=== PATIENT | female | born 1980 | race Caucasian/White ===

== ENCOUNTER → 2016-10-03 | Outpatient (CLI) | payer OTHER ==
[~2016-10-03] MED LIST: CYCL-36 PO; LORTA5 PO; MOTR200T PO; OXYC1TAB63 PO; PREN0.01 PO
== END ==
LOC: CLAB 11:01
PROVIDERS: ATTEND Obstetrics & Gynecology
DX: O36.0191 Maternal care for anti-D [Rh] antibodies, unspecified trimester, fetus 1 (principal); Z14.8 Genetic carrier of other disease
CPT/HCPCS: 36415; 86850; 86900; 86901; 90384; 96372; J2790

== ENCOUNTER 2016-12-21 18:10 | Inpatient (IN) | payer OTHER ==
[~2016-12-21 18:10] MED LIST changes: -OXYC1TAB63 PO
[2016-12-21 19:00] VITALS: RESP 20; TEMP 99.2
[2016-12-21] MEDS ORDERED: LACTATED RINGER'S 1000 ML IV SCH (20:15)
[2016-12-21] MEDS ORDERED: DINOPROSTONE 10 MG INSERT - REMOVE AT 0600 VAGINAL ONE (20:15)
[2016-12-21] MEDS ORDERED: SODIUM CHLORIDE 0.9% FLUSH 10 ML FLUSH IV FLUSH PRN ×2 (20:15)
[2016-12-21] MEDS ORDERED: ONDANSETRON HCL 4 MG/2 ML VIAL IV PRN (20:15)
[2016-12-21] MEDS ORDERED: MINERAL OIL 10 ML VIAL TOPICAL PRN (20:15)
[2016-12-21] MEDS ORDERED: CITRIC ACID-SODIUM CITRATE LIQ 30 ML UDC PO SCH (20:15)
[2016-12-21] MEDS ORDERED: LIDOCAINE HCL 1% 50 ML VIAL INFIL PRN (20:15)
[2016-12-21] MEDS ORDERED: NS 500 ML BOLUS IV PRN (20:15)
[2016-12-21] MEDS ORDERED: OXYTOCIN 30 UNITS/NS 500ML PREMIX IV SCH (20:15)
[2016-12-21] MEDS ORDERED: NS 1000 ML IV PRN (20:15)
[2016-12-21] MEDS ORDERED: OXYTOCIN 30 UNITS 500ML PREMIX IV ONE (20:15)
[2016-12-21] MEDS ORDERED: LACTATED RINGER'S 1000 ML BOLUS IV PRN (20:15)
[2016-12-21] MEDS ORDERED: LIDOCAINE HCL 1% 50 ML VIAL I-DERMAL PRN (20:15)
[2016-12-21 20:24] LABS: BACTERIA, URINE RARE /hpf; BLOOD, URINE NEG (NEG); COMMENT (UR) CULT NOT INDICATED; CULTURE IF INDICATED CULT NOT INDICATED; GLUCOSE,URINE NEG (NEG); KETONE, URINE NEG (NEG); MUCUS URINE FEW /lpf (OCC); NITRITE,URINE NEG (NEG); SQUAMOUS EPITHELIAL CELL URINE 7 /hpf (0-5); URINE COLOR LIGHT-YELLOW (YELLW/STRAW)
[2016-12-21] MEDS ORDERED: CLINDAMYCIN INJ 900 MG in SODIUM CHLORIDE 0.9% INJ 100 ML IV ONE (21:00)
[2016-12-21] MEDS ORDERED: LACTATED RINGER'S 1000 ML INJ 1,000 ML IV SCH (21:00)
[2016-12-21 21:57] LABS: AUTOMATED NEUTROPHIL # 6.8 TH/MM3 (1.8-7.7); BASOPHIL # 0.1 TH/MM3 (0-0.2); BASOPHIL % 0.6 % (0.0-2.0); EOSINOPHIL # 0.1 TH/MM3 (0-0.4); EOSINOPHIL % 0.9 % (0.0-4.0); HEMATOCRIT 35.6 % (35.0-46.0); HEMO FLAGS DIFF FINAL; LYMPH % 23.5 % (9.0-44.0); LYMPHOCYTE # 2.4 TH/MM3 (1.0-4.8); MEAN CELL VOLUME 96.1 FL (80.0-100.0); MEAN CORPUSCULAR HEMOGLOBIN 33.4 PG (27.0-34.0); MEAN CORPUSCULAR HGB CONC 34.7 % (32.0-36.0); PLATELET COUNT 173 TH/MM3 (150-450); RED CELL DISTRIBUTION WIDTH 13.1 % (11.6-17.2); WHITE BLOOD COUNT 10.2 TH/MM3 (4.0-11.0)
[2016-12-22] VITALS (50 sets, daily range): BP systolic 96–139; BP diastolic 44–90; PULSE 61–119; RESP 18; TEMP 97.6–98.4; O2SAT 99–100
--- NOTE | 2016-12-22 05:17 | MH ---
cc: JORGE DIAZ M.D. DATE OF ADMISSION: 12/21/2016 ADMISSION DIAGNOSES 1. Term 2. Advanced terminal age, 36. HISTORY OF PRESENT ILLNESS The patient is a 36-year-old white female, para 0-0-3-0, LMP of 03/17/2016, EDC of 12/22/2016. Her course was benign. 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 All three required D&C. She had a uterine septum resection in August of 2015 and has done well with this . 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 MEDICATIONS Vitamins. ALLERGIES None. TRANSFUSIONS None. SOCIAL HISTORY She is . She is a CPA. 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 PHYSICAL EXAMINATION GENERAL: A well-nourished well-developed white female. VITAL SIGNS: Stable. HEENT EXAM: Normal. CHEST: Clear. HEART: Regular rate. BREASTS: Symmetrical. ABDOMEN: Gravid. EFW is 3500 grams. PELVIC EXAM: The cervix is closed. EXTREMITIES: Normal. ASSESSMENT As above. PLAN She is now admitted for Cervidil and Pitocin induction. Should she have failure to progress or distress, would need delivery. The patient agrees to proceed. MD JOSE LUIS Toro/LEWIS /5:21 PM /5:02 AM JOAQUIM
[2016-12-22] MEDS ORDERED: OXYTOCIN 30 UNITS/NS 500ML PREMIX IV SCH (06:30)
[2016-12-22] MEDS: CLINDAMYCIN 600 MG/NS 100 ML IV SCH ×6 (07:54→17:14)
[2016-12-22] MEDS ORDERED: LACTATED RINGER'S 1000 ML INJ 1,000 ML IV SCH (13:04)
[2016-12-22] MEDS ORDERED: OXYTOCIN 10 UNIT/ML AMP ONE (16:06)
[2016-12-22] MEDS ORDERED: ACETAMINOPHEN 1000 MG/100 ML VIAL IV ONE (17:20)
[2016-12-22] MEDS ORDERED: OXYTOCIN 30 UNITS-500ML PREMIX 500 ML IV PRN (18:15)
[2016-12-22] MEDS ORDERED: oxyCODONE/ACETAMINOPHEN 5 MG/325 MG TAB PO PRN ×2 (18:30)
[2016-12-22] MEDS ORDERED: KETOROLAC TROMETHAMINE 60 MG/2 ML (IM) VIAL IM PRN (18:30)
[2016-12-22] MEDS ORDERED: SIMETHICONE 80 MG CHEWABLE TAB PO PRN (18:30)
[2016-12-22] MEDS ORDERED: ZOLPIDEM TARTRATE 5 MG TAB PO PRN (18:30)
[2016-12-22] MEDS ORDERED: MEASLES, MUMPS, RUBELLA VACCINE 0.5 ML VIAL SQ ONE (18:30)
[2016-12-22] MEDS ORDERED: SODIUM CHLORIDE 0.9% FLUSH 5 ML FLUSH IV PRN (18:30)
[2016-12-22] MEDS ORDERED: OXYTOCIN 30 UNITS-500ML PREMIX 500 ML IV ONE (18:30)
[2016-12-22] MEDS ORDERED: KETOROLAC TROMETHAMINE 30 MG/ML (IVP) VIAL IV PUSH PRN (18:30)
[2016-12-22] MEDS: ACETAMINOPHEN 1000 MG/100 ML VIAL IV SCH (18:30)
[2016-12-22] MEDS ORDERED: MORPHINE SULFATE PF 5 MG/10 ML VIAL ONE (18:33)
[2016-12-22] MEDS ORDERED: OXYTOCIN 30 UNITS-500ML PREMIX 500 ML ONE (18:47)
[2016-12-22] MEDS ORDERED: KETOROLAC TROMETHAMINE 60 MG/2 ML (IM) VIAL IM ONE (19:02)
[2016-12-22] MEDS ORDERED: EPIDURAL-NALOXONE HCL 0.4 MG/ML AMP IV PRN (20:15)
[2016-12-22] MEDS ORDERED: EPIDURAL-DO NOT ADMINISTER ANTICOAGULANTS PRN (20:15)
[2016-12-22] MEDS ORDERED: EPIDURAL-NO SYSTEMIC NARCOTICS PRN (20:15)
[2016-12-22] MEDS ORDERED: EPIDURAL-DIPHENHYDRAMINE HCL 50 MG CAP PO PRN (20:15)
[2016-12-22] MEDS ORDERED: EPIDURAL-DIPHENHYDRAMINE HCL 50 MG/ML VIAL IV PUSH PRN (20:15)
[2016-12-22] MEDS: ONDANSETRON HCL 4 MG/2 ML VIAL IVP PRN (20:35)
[2016-12-22] MEDS ORDERED: AMMONIA AROMATIC INHALANT 0.33 ML ONE (20:54)
[2016-12-22] MEDS ORDERED: SODIUM CHLORIDE 0.9% FLUSH 5 ML FLUSH IV SCH (21:00)
[2016-12-22] MEDS ORDERED: DOCUSATE SODIUM 50 MG/SENNA 8.6 MG TAB PO PRN (21:00)
[2016-12-23] VITALS: BP 108/71; PULSE 62; RESP 18; TEMP 97.5
[2016-12-23] MEDS: CLINDAMYCIN 600 MG/NS 100 ML IV SCH ×2 (01:23)
[2016-12-23 01:46] VITALS: RESP 16
[2016-12-23] MEDS: ACETAMINOPHEN 1000 MG/100 ML VIAL IV SCH ×2 (02:08→10:33)
[2016-12-23] MEDS: ONDANSETRON HCL 4 MG/2 ML VIAL IVP PRN (03:06)
[2016-12-23 04:00] VITALS: BP 108/65; PULSE 64; RESP 18; TEMP 98.1
[2016-12-23 06:59] LABS: AUTOMATED NEUTROPHIL # 10.2 TH/MM3 (1.8-7.7); BASOPHIL % 0.2 % (0.0-2.0); HEMATOCRIT 29.5 % (35.0-46.0); HEMO FLAGS DIFF FINAL; LYMPH % 10.2 % (9.0-44.0); LYMPHOCYTE # 1.3 TH/MM3 (1.0-4.8); MEAN CELL VOLUME 97.9 FL (80.0-100.0); MEAN CORPUSCULAR HEMOGLOBIN 32.8 PG (27.0-34.0); MEAN CORPUSCULAR HGB CONC 33.5 % (32.0-36.0); MONO % 6.4 % (0.0-8.0); NEUT % 83.2 % (16.0-70.0); PLATELET COUNT 140 TH/MM3 (150-450); RED BLOOD COUNT 3.02 MIL/MM3 (4.00-5.30); RED CELL DISTRIBUTION WIDTH 13.3 % (11.6-17.2); WHITE BLOOD COUNT 12.3 TH/MM3 (4.0-11.0)
[2016-12-23 07:14] LABS: BICARBONATE 21.4 MEQ/L (21.0-32.0); POTASSIUM 4.1 MEQ/L (3.5-5.1)
[2016-12-23 09:00] VITALS: BP 102/59; PULSE 16; PULSE 60; RESP 16; TEMP 98.1
[2016-12-23] MEDS ORDERED: CLINDAMYCIN 600 MG/NS 100 ML IV SCH ×2 (10:00)
[2016-12-23] MEDS: IBUPROFEN 600 MG TAB PO PRN ×2 (11:00→17:30)
[2016-12-23 20:06] VITALS: BP 105/65; PULSE 68; RESP 16; TEMP 97.7
[2016-12-24] MEDS: IBUPROFEN 600 MG TAB PO PRN ×2 (02:36→10:15)
[2016-12-24 07:58] VITALS: BP 105/60; PULSE 69; RESP 18; TEMP 98.2
[2016-12-24] MEDS ORDERED: DIPHTH/TETANUS/ACEL PERTUSSIS (BOOSTER) 0.5 ML VIAL/PFS IM ONE (09:00)
[2016-12-24] MEDS ORDERED: OXYC1TAB63 PO (10:45)
--- NOTE | 2016-12-24 10:46 | HHI.DCPOC ---
Discharge Care Plan Report Symptoms to Your Doctor -Temperate above 100.5 degrees -Redness, of incision or excessive or foul smelling drainage -Unusual pain or calf pain -Increased vaginal bleeding -Painful or difficulty urinating -Feelings of extreme sadness or anxiety after 2 weeks Goals to Promote Your Health * To prevent worsening of your condition and complications * To maintain your health at the optimal level Directions to Meet Your Goals Take your medications as prescribed Follow your dietary instruction Follow activity as directed Ensure plenty of rest for recovery Drink fluids for hydration Keep your appointments as scheduled Take your immunizations and boosters as scheduled If your symptoms worsen call your PCP, if no PCP go to Urgent Care Center or Emergency Room Smoking is Dangerous to Your Health. Avoid second hand smoke Call the 24-hour crisis hotline for domestic abuse at Ricardo Mchugh MD Dec 24, 2016 10:45
--- NOTE | 2016-12-25 13:23 | MP ---
cc: EMILYJORGE DATE OF SURGERY: 12/22/2016 PREOPERATIVE DIAGNOSIS 1. Term . 2. Advanced maternal age 36. 3. Failure to progress. POSTOPERATIVE DIAGNOSIS 1. Term . 2. Advanced maternal age 36. 3. Failure to progress. 4. Delivered. PROCEDURE Primary low transverse section. ANESTHESIA Spinal. SURGEON Jorge Mchugh MD [employer] Caty Jaquez. ESTIMATED BLOOD LOSS 800 ccs. FLUIDS 1.3 liters crystalloid. OBJECTIVE FINDINGS Following induction of adequate spinal anesthesia the patient was prepped and draped supine on the operating table in dorsal lithotomy position in usual sterile fashion with the bladder being drained via Mckoy catheterization. The abdomen was opened with a Pfannenstiel incision using a knife to cut down through skin to the fascia. Fascia was opened transversely, stripped from the muscles. Rectus muscle was split in the midline and the peritoneum opened sharply. The bladder flap was taken down sharply, retracted inferiorly with the [place] blade. The lower uterine segment was incised transversely with the knife, extended with blunt dissection and there was clear fluid. The baby was in the LOT position. The vacuum extractor was applied to the occiput and used to elevate the head through the uterine abdominal wound. Mouth was suctioned, cord clamped and cut and the baby was passed to the awaiting team, viable vigorous male, Apgars were 9 and 9, weight 8 pounds, 6 ounces. Cord blood was collected for preservation and cord segment for preservation. Cord blood was sent for typing. The placenta was manually removed and the uterine cavity wiped clean with laps. The uterus was exteriorized and closed in two layers with running suture, first with a running locking stitch of 0-Vicryl, second with running imbricating stitch of 0-Vicryl. Posterior inspection of tubes, ovaries and uterus were normal. The uterus was placed back into the abdominal cavity. Irrigation was performed, no bleeding was evident. The bladder flap was closed with running stitch of 3-0 Vicryl. All laps and instruments were removed. Counts were correct. The anterior peritoneum was closed with running stitch of 2-0 Vicryl. Fascia was closed with running locking stitch of 0 Vicryl corner to midline and tied, subcu with running 3-0 Vicryl and skin with running subcuticular 3-0 Monocryl. Dermabond was applied. All counts were correct and the patient was awakened and taken to the recovery room in good condition. MD JOSE LUIS Toro/TAMI /9:23 PM /1:08 PM
--- NOTE | 2016-12-27 12:58 | MD ---
cc: JORGE DIAZ ADMISSION DATE: 12/21/2016 DISCHARGE DATE: 12/24/2016 ADMISSION DIAGNOSIS 1. Term . 2. Advanced maternal age. DISCHARGE DIAGNOSIS 1. Term . 2. Advanced maternal age. 3. Failure to progress. 4. Delivered. PROCEDURE Primary low transverse section on 12/22/2016. HISTORY OF PRESENT ILLNESS 26-year-old white female, para 0-0-3-0, with EDC of 12/22/2016. Her preop course was benign. PAST MEDICAL HISTORY Her past medical history notable for three previous miscarriages first trimester. She had uterine septum resection hysteroscopically August of 2015. She had a LEEP procedure in 2004. MEDICATIONS Vitamins. ALLERGIES LATEX AND PENICILLIN. TRANSFUSIONS None. SOCIAL HISTORY She is , CPA. 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 PHYSICAL EXAMINATION This is a well-nourished, well-developed white female. Vital signs are stable. Exam is normal. HOSPITAL COURSE On the day of admission she received Cervidil followed by Pitocin the next day. She had failed to progress beyond 1 cm despite spontaneous rupture of membranes. On the evening of 12/22/2016 she underwent a primary low transverse section with delivery of a viable vigorous male, Apgars 9 and 9, weight 8 pounds 6 ounces. Baby is named Av and she was breast feeding. did well, discharged home in excellent condition on 12/24/2016. She received RhoGAM. Her postop labs were normal. She was advised NPV, light activity, no driving. Return to see me in 1 week. She is call for abnormal pain, bleeding, temperature, signs of infection or depression. She was given a prescription for Percocet 5 one p.o. q.4 hours p.r.n. for pain, #30 or use [id number] Motrin for pain relief as well. MD JOS ELUIS Toro/TAMI /10:49 AM /12:32 PM JOAQUIM
== END 2016-12-24 12:48 | disposition home or self-care (01) | DRG 766 ==
LOC: H2EA 18:10 → H1EA 12-22 19:31
PROVIDERS: ADMIT Obstetrics & Gynecology; ATTEND Obstetrics & Gynecology
PROC: 10D00Z1 Extraction of Products of Conception, Low, Open Approach (ICD-10-PCS; principal; 2016-12-21)
DX: O32.4XX0 Maternal care for high head at term, not applicable or unspecified (principal); O09.529 Supervision of elderly multigravida, unspecified trimester; O62.2 Other uterine inertia; Z37.0 Single live birth; Z3A.40 40 weeks gestation of pregnancy
CPT/HCPCS: 80048; 81001; 84112; 85025; 85461; 86850; 86900; 86901; 90384; 90715; J0131; J1885; J2274; J2405; J2590; J2790; J7120